=== PATIENT | male | born 1985 | race American Indian/Alaskan Native ===

== ENCOUNTER 2021-01-07 23:46 | Emergency (ER) | payer OTHER, SELFPAY ==
[2021-01-08] MEDS ORDERED: SODIUM CHLORIDE 0.9% 1000 ML 1,000 ML IV ONE (03:40)
[2021-01-08] MEDS ORDERED: ACETAMINOPHEN 500 MG TAB PO ONE (03:40)
[2021-01-08] MEDS ORDERED: ONDANSETRON 4 MG/2 ML INJ IV ONE (03:41)
--- NOTE | 2021-01-08 03:44 | Emergency Department Report ---
ED General Adult HPI - General Chief complaint: Fever Stated complaint: COVID SYMPTOMS PUI?: Yes Time Seen by Provider: 01/08/21 03:17 Source: patient Mode of arrival: Ambulatory Limitations: No Limitations - History of Present Illness Initial comments: Patient is a 35-year-old male who presents presents for fever chills malaise for 2 weeks. Patient presents with other family member for similar symptoms concern for COVID. Patient has not COVID vaccinated. No T-max recorded at home temp is 101 in triage today. Patient states intermittent diarrhea last episode was 6 hours ago. Patient is tolerating p.o. hydrating at this time. states he feels dehydrated. Patient denies shortness of breath, there is no dizziness or head ache. Patient does endorse chills and malaise. Lungs are exacerbated by activity. Are relieved by nothing tried. - Related Data Previous Rx's Medication Instructions Recorded Last Taken Type Acetaminophen 1,000 mg PO Q6H PRN #30 capsule 01/08/21 Unknown Rx Albuterol Mdi (or & Nicu Only) 2 puff IH QID PRN #8.5 gram 01/08/21 Unknown Rx [ProAir HFA Inhaler] Azithromycin 500 mg PO DAILY #5 tablet 01/08/21 Unknown Rx Dexamethasone [Decadron] 6 mg PO BID 3 Days #6 tablet 01/08/21 Unknown Rx Allergies Allergy/AdvReac Type Severity Reaction Status Date / Time No Known Allergies Allergy Unverified 01/08/21 03:39 ED Review of Systems ROS: Stated complaint: COVID SYMPTOMS Other details as noted in HPI Constitutional: chills, fever, malaise Eyes: denies: eye pain, eye discharge, vision change ENT: denies: ear pain, throat pain Respiratory: denies: cough, shortness of breath, wheezing Cardiovascular: denies: chest pain, palpitations Endocrine: no symptoms reported Gastrointestinal: nausea, vomiting, diarrhea. denies: abdominal pain Genitourinary: denies: urgency, dysuria Musculoskeletal: denies: back pain, joint swelling, arthralgia Skin: denies: rash, lesions Neurological: denies: headache, weakness, paresthesias Psychiatric: denies: anxiety, depression Hematological/Lymphatic: denies: easy bleeding, easy bruising ED Past Medical Hx - Past Medical History Previous Medical History?: No - Surgical History Past Surgical History?: No - Social History Smoking Status: Current Every Day Smoker Substance Use Type: None - Medications Home Medications: Home Medications Medication Instructions Recorded Confirmed Last Taken Type Acetaminophen 1,000 mg PO Q6H PRN #30 capsule 01/08/21 Unknown Rx Albuterol Mdi (or & Nicu Only) 2 puff IH QID PRN #8.5 gram 01/08/21 Unknown Rx [ProAir HFA Inhaler] Azithromycin 500 mg PO DAILY #5 tablet 01/08/21 Unknown Rx Dexamethasone [Decadron] 6 mg PO BID 3 Days #6 tablet 01/08/21 Unknown Rx ED Physical Exam - General Limitations: No Limitations General appearance: alert, in no apparent distress - Head Head exam: Present: atraumatic, normocephalic - Eye Eye exam: Present: normal appearance, PERRL, EOMI. Absent: conjunctival injection, nystagmus Pupils: Present: normal accommodation - ENT ENT exam: Present: mucous membranes moist - Neck Neck exam: Present: normal inspection, full ROM. Absent: tenderness, lymphadenopathy - Respiratory Respiratory exam: Present: normal lung sounds bilaterally. Absent: respiratory distress, wheezes, stridor, chest wall tenderness - Cardiovascular Cardiovascular Exam: Present: normal rhythm, tachycardia, normal heart sounds. Absent: systolic murmur, diastolic murmur, rubs, gallop - GI/Abdominal GI/Abdominal exam: Present: soft, normal bowel sounds. Absent: distended, tenderness, guarding, rebound, rigid, bruit, hernia - Rectal Rectal exam: Present: deferred - Extremities Exam Extremities exam: Present: normal inspection, full ROM, normal capillary refill. Absent: tenderness - Back Exam Back exam: Present: normal inspection, full ROM. Absent: tenderness, CVA tenderness (R), CVA tenderness (L) - Neurological Exam Neurological exam: Present: alert, oriented X3, CN II-XII intact, normal gait, reflexes normal. Absent: motor sensory deficit - Expanded Neurological Exam Expanded Patient oriented to: Present: person, place, time Speech: Present: fluid speech Motor strength exam: RUE: 5, LUE: 5, RLE: 5, LLE: 5 DTR: knee (R): 2+, knee (L): 2+ Best Eye Response (Avenel): (4) open spontaneously Best Motor Response (Avenel): (6) obeys commands Best Verbal Response (Ran): (5) oriented Avenel Total: 15 - Psychiatric Psychiatric exam: Present: normal affect, normal mood - Skin Skin exam: Present: warm, dry, intact, normal color. Absent: rash ED Course Vital Signs 01/08/21 03:33 Temperature 100.7 F H Pulse Rate 120 H Respiratory 20 Rate Blood Pressure 147/104 O2 Sat by Pulse 93 Oximetry - Reevaluation(s) Reevaluation #1: NS 1000 ivf, Rocephin 1gm IVPB, Decadron 10 mg IV, Azithromycin 500mg po, tylenol 1gm po, HR improved to 82 bpm, fever resolved, labs noted above, CXR: Lulu LECHUGA Pnuemonia 01/08/21 06:00 01/08/21 06:02 ED Medical Decision Making - Lab Data Result diagrams: 01/08/21 05:25 - Radiology Data Radiology results: report reviewed Lulu PRADO Pneumonia - Medical Decision Making Pt was offered admission however he declined, Pt symptoms are improved, pt ambulated from room to bathroom and back to room without increased sob, V/S at this time: O2 Sat 95% room air, resp: 18, P: 85, bp: 147/84, Lung sounds are clear at this time, pt is tolerating po intake without symptoms, plan: dc to home , quarantine as directed per CDC guidelines, take prescriptions as ordered, hydrate as directed, return to emergency department should symptoms worsen. Patient verbalized agreement and understanding with discharge plan. Patient will be DC'd to home via POV and family member at this time. Critical care attestation.: If time is entered above; I have spent that time in minutes in the direct care of this critically ill patient, excluding procedure time. ED Disposition Clinical Impression: Pneumonia due to COVID-19 virus Disposition: HOME / SELF CARE / HOMELESS Is pt being admited?: No Does the pt Need Aspirin: No Condition: Stable Instructions: Bacterial Pneumonia (ED), COVID-19, COVID-19: How to Protect Yourself and Others - CDC Additional Instructions: Take medications as prescribed, hydrate as directed, quarantine as directed per CDC guidelines, follow-up with your doctor in 2 to 3 days. Call for appointment first. Return to emergency department should symptoms worsen. Prescriptions: Acetaminophen 1,000 mg PO Q6H PRN #30 capsule PRN Reason: fever pain Azithromycin 500 mg PO DAILY #5 tablet Dexamethasone [Decadron] 6 mg PO BID 3 Days #6 tablet Albuterol Mdi (or & Nicu Only) [ProAir HFA Inhaler] 2 puff IH QID PRN #8.5 gram PRN Reason: Shortness Of Breath Referrals: GEETHA WARNER MD [Staff Physician] - 3-5 Days Forms: Work/School Release Form(ED) Time of Disposition: 06:19 Print Language: KOREAN
[2021-01-08] MEDS ORDERED: cefTRIAXone/NS 1 GM/50 ML 1 GM/50 ML BAG IV ONE (04:29)
[2021-01-08] MEDS ORDERED: AZITHROMYCIN 250 MG TAB PO ONE (04:29)
[2021-01-08] MEDS ORDERED: dexAMETHasone 20 MG/5 ML VIAL IV ONE (04:29)
[2021-01-08 05:53] LABS: Basophils # (Auto) 0.1 K/mm3 (0.0-0.1); Basophils % (Auto) 0.9 % (0.0-1.8); Hematocrit 46.6 % (35.5-45.6); Hemoglobin 16.2 gm/dl (11.8-15.2); Lymphocytes # (Auto) 1.5 K/mm3 (1.2-5.4); Lymphocytes % (Auto) 22.6 % (13.4-35.0); Mean Corpuscular HGB Conc 35 % (32-34); Mean Corpuscular Volume 86 fl (84-94); Monocytes # (Auto) 0.6 K/mm3 (0.0-0.8); Monocytes % (Auto) 8.3 % (0.0-7.3); Platelet Count 156 K/mm3 (140-440); Red Blood Count 5.43 M/mm3 (3.65-5.03); Red Cell Distribution Width 14.8 % (13.2-15.2)
--- NOTE | 2021-01-08 06:01 | XRay Report ---
CHEST 1 VIEW 01/08/2021 3:17 AM INDICATION / CLINICAL INFORMATION: fever cough. COMPARISON: None available. FINDINGS: SUPPORT DEVICES: None. HEART / MEDIASTINUM: No significant abnormality. LUNGS / PLEURA: Streaky bilateral parenchymal disease, left greater than right characteristic for Cov id pneumonia No pneumothorax. ADDITIONAL FINDINGS: No significant additional findings. IMPRESSION: 1. Bilateral Covid pneumonia Signer Name: Richie Lindsey MD Signed: 01/08/2021 5:56 AM Workstation Name: [id number]
[2021-01-08 06:05] LABS: Alanine Aminotransferase 64 units/L (7-56); Albumin 3.6 g/dL (3.9-5); BUN/Creatinine Ratio 12; Blood Urea Nitrogen 14 mg/dL (9-20); Calcium 7.6 mg/dL (8.4-10.2); Hemolysis Index 2
[2021-01-08 07:55] VITALS: BP 126/72
== END 2021-01-08 09:35 | disposition home or self-care (01) ==
LOC: EDSEX → ED 23:46
DX: U07.1 COVID-19 (principal); J12.89 Other viral pneumonia; F17.200 Nicotine dependence, unspecified, uncomplicated; Z79.899 Other long term (current) drug therapy
CPT/HCPCS: 36415; 71045; 80053; 82140; 85025; 87040; 96365; 96375; 99284; J0696; J1100; J2405; J7030